=== PATIENT | male | born 1960 | race African-American/Black ===

== ENCOUNTER 2016-05-01 14:28 | Observation (INO) ==
--- NOTE | 2016-05-01 15:13 | EKG Report ---
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
--- NOTE | 2016-05-01 15:14 | Emergency Department Note ---
Ernesto Sr Gwan, am scribing for, and in the presence of, Bernardino Shirley MD 15:11 . Fern Sr James D, MD, personally performed the services described in this documentation, ascribed by Phi Orozco in my presence, and it is both accurate and complete . Arrival - Arrival ED Nursing Triage Note: C/o SOB with exertion-onset 5 days ago. Denies CP or N/ V. Mode of Arrival: Ambulatory Limitations: No Limitations Source: Patient, Old Records Reviewed, RN Notes Reviewed - History of Present Illness Onset (ago): day(s) Consistency: constant Severity: moderate <Bernardino Shirley - Last Filed: 05/01/16 15:47> <Brittny Santiago - Last Filed: 05/01/16 22:33> - Arrival Chief Complaint: Shortness of Breath Stated Complaint: FEELING BAD/SOB - History of Present Illness HPI Narrative: Pt is a 55 y/o male, with a hx of HTN/NIDDM/asthma, who presents to the with a c/o SOB with an onset 5 days ago. Patient stated that her SOB is worsened with exertion. He denies chest pain, cough, wheezing, fever, no dark BM or N/V. Patient then stated that he has been checked for blood clots with negative results. He confirmed that he has been complaint with medication and that he last checked his BS three days ago. Patient is followed by Dr. Carrillo. No other problems/complaints reported in ED. (Phi Orozco) Pt is a 55 y/o male, with a hx of HTN/NIDDM/asthma, who presents to the with a c/o SOB with an onset 5 days ago. Patient stated that her SOB is worsened with exertion. He denies chest pain, cough, wheezing, fever, no dark BM or N/V. Patient then stated that he has been checked for blood clots with negative results. He confirmed that he has been complaint with medication and that he last checked his BS three days ago. Patient is followed by Dr. Carrillo. No other problems/complaints reported in ED. (Bernardino Shirley) Allergies/Adverse Reactions: Allergies Allergy/AdvReac Type Severity Reaction Status Date / Time No Known Allergies Allergy Verified 07/10/14 08:51 Home Medications: Home Medications Medication Instructions Recorded Confirmed Type Amlodipine Besylate 10 mg PO DAILY 07/10/14 05/01/16 History Furosemide Tab [Lasix Tab] 20 mg PO BID DIURETIC 07/10/14 05/01/16 History Lisinopril [Zestril] 40 mg PO DAILY 07/10/14 05/01/16 History glyBURIDE/METFORMIN 5-500 2 tablet PO BID W/MEALS 07/10/14 05/01/16 History [Glucovance 5-500] Dapagliflozin Propanediol [Farxiga] 10 mg PO QAM 05/01/16 05/01/16 History Review of System - Review of System 12 point system: reviewed and no additional remarkable complaints except as stated - Review of System Respiratory: Present: as per HPI, other (shortness of breathe) <Bernardino Shirley - Last Filed: 05/01/16 15:47> Medical,Surgical,& Family Hx - Medical History Cardio: History of: Hypertension Endocrine: History of: Diabetes Mellitus (NIDDM), Dyslipidemia Respiratory: History of: Asthma (as a child) Renal: No history of: Renal Problems Genitourinary: History of: Kidney Stones Gastrointestinal: No history of: Gastrointestinal Bleed, GI Problems - Surgical History Orthopedic Surgeries: Surgical HX of;: Orthopedic Surgery (ACL repair and previous knee scopes) - Social History Smoking Status: Never smoker Frequency of Alcohol Use: None Type of Drug Use: None <Bernardino Shirley - Last Filed: 05/01/16 15:47> Exam <Bernardino Shirley - Last Filed: 05/01/16 15:47> <Brittny Santiago - Last Filed: 05/01/16 22:33> Vital Signs: Vital Signs Temperature 98.1 F 05/01/16 16:30 Pulse Rate 92 H 05/01/16 21:30 Respiratory Rate 18 05/01/16 21:30 Blood Pressure 135/78 05/01/16 21:30 O2 Sat by Pulse Oximetry 99 05/01/16 21:30 GENERAL: This is a well-nourished well-developed morbidly obese black male in no apparent distress. VITAL SIGNS: Reviewed HEENT: Head is atraumatic and normocephalic. Pupils are equal round react to light. Extraocular movements are intact. Oropharynx is benign with moist mucous membranes. NECK: Neck is soft and supple without tenderness. There are no masses. There is no lymphadenopathy. LUNGS: Lungs are clear to auscultation. Chest rises symmetrically. There is no chest wall tenderness. CV: Heart is regular rate and rhythm without murmurs rubs or gallops. ABDOMEN: Abdomen is soft, nontender to palpation. There are no abdominal abnormal masses palpated. There is no organomegaly. Bowel sounds are present and active. SKIN: Skin is warm and dry. No rash. EXTREMITIES: Patient has full range of motion without tenderness. There is 2+ right lower extremity pitting pedal edema. NEUROLOGIC: Awake alert and oriented 4. Cranial nerves II through XII are grossly intact. Motor is 5 over 5 in all extremities bilaterally. (Bernardino Shirley) Course <Bernardino Shirley - Last Filed: 05/01/16 15:47> <Brittny Santiago - Last Filed: 05/01/16 22:33> Course Narrative: h/h much lower than prior. occult positive. likely from taking aleve all the time for knee pain. will admit to hospitalist. (Brittny Santiago) Results - Labs Lab Results: I have reviewed the patients labs - EKG EKG results: interpreted by ERMD - Diagnostic Findings Procedure: Chest x-ray: image reviewed by me (Increased pulmonary markings bilaterally.) <Bernardino Shirley - Last Filed: 05/01/16 15:47> - Labs CBC & BMP: 05/01/16 15:42 05/01/16 15:45 <Brittny Santiago - Last Filed: 05/01/16 22:33> - Impressions EKG: Normal sinus rhythm with a rate of 89, T-wave inversion consistent with anterolateral ischemia, normal axis. (Bernardino Shirley) Disposition Case discussed with: patient <Bernardino Shirley - Last Filed: 05/01/16 15:47> Case discussed with: patient, patient's family <Brittny Santiago - Last Filed: 05/01/16 22:33> Clinical Impression: Dyspnea, Essential hypertension, Diabetes mellitus, Edema of right lower extremity, Symptomatic anemia, GI bleed due to NSAIDs Disposition: Still a Patient Condition: Stable
--- NOTE | 2016-05-01 15:39 | XRay Report ---
XR chest 2V Indication: Shortness of breath Comparison: None available Findings: The heart and mediastinum are normal in size and configuration. The pulmonary vascularity is normal in caliber. No lung infiltrates, effusions, pneumothorax or other abnormality is demonstrated. Impression: Normal chest x-ray PROCEDURE INTERPRETED AT [facility] DEPARTMENT OF RADIOLOGY Final Report Signed by: Dr. Raj Staley
[2016-05-01] MEDS ORDERED: FUROSEMIDE 40 MG/4 ML VIAL IV STA (15:47)
[2016-05-01] MEDS ORDERED: FUROSEMIDE 100 MG/10 ML VIAL ONE (16:14)
[2016-05-01 16:27] LABS: Basophils % 0.5 % (0.0-0.8); Eosinophils # 0.2 10*3/uL (0.0-0.87); Eosinophils % 2.6 % (0.00-10.9); Hematocrit 28.4 VOL% (42.0-52.0); Hemoglobin 8.6 GM/DL (14.0-18.0); Immature Granulocytes % 0.5 %; Immature Granulocytes Absolute 0.04 #; Lymphocytes # 1.7 10*3/uL (1.4-4.0); Lymphocytes % 20.1 % (21.2-54.2); Mean Corpuscular HGB Conc 30.3 GM/DL (32-36); Mean Corpuscular Hemoglobin 28 PG (27-34); Monocytes # 0.5 10*3/uL (0.11-0.8); Monocytes % 6.1 % (1.7-12.7); Neutrophils # 5.9 10*3/uL (1.4-7.4); Neutrophils % 70.2 % (38.7-73.9); Platelet Count 268 T/CUMM (130-400); Red Blood Count 3.12 MC/CUMM (3.8-5.5); Red Cell Distribution Width 17.4 % (9.3-17.3); White Blood Count 8.4 T/CUMM (4-12)
--- NOTE | 2016-05-01 16:27 | Ultrasound Report ---
Venous Doppler ultrasound right lower extremity Indication: Swelling Comparison: None available Findings: No evidence of echogenic, noncompressible thrombus seen in the visualized veins of the extremities. Color Doppler venous waveform pattern is within normal limits. Impression: No evidence of deep venous thrombosis. Ultrasound images stored and captured. PROCEDURE INTERPRETED AT [facility] DEPARTMENT OF RADIOLOGY Final Report Signed by: Dr. Raj Staley
[2016-05-01 16:34] LABS: PT Patient Result 10.5 SECS; Partial Thromboplastin Time 27.6 SECS (0-40)
[2016-05-01 16:35] LABS: Alanine Aminotransferase 24 U/L (16-61); Albumin 3.6 G/DL (3.4-5.0); Alkaline Phosphatase 80 U/L (45-117); Aspartate Amino Transferase 20 U/L (0-37); Bilirubin,Total < 0.39 MG/DL (0.2-1.0); Blood Urea Nitrogen 25 MG/DL (7-18); Calcium 9.1 MG/DL (8.5-10.1); Glucose 177 MG/DL (74-106); Potassium 4.7 MMOL/L (3.5-5.1); Sodium 143 MMOL/L (136-145); Total Protein 7.2 G/DL (6.4-8.3); Troponin I Only < 0.015 NG/ML (0.00-0.045)
[2016-05-01 16:37] LABS: Apearance,Urine CLEAR (Clear); Bilirubin,Urine Negative (Negative); Blood, Urine Negative (Negative); Glucose,Urine (UA) >=500 mg/dL (Negative); Ketones,Urine Negative (Negative); Mucus,Urine Occasional /LPF (Occasional); Nitrite,Urine Negative (Negative); Protein,Urine 30 MG/DL; Squamous Epithelial Cell,Urine Occasional /HPF (0-10); Urine Color Straw (Yellow); Urine Specific Gravity 1.014 (1.001-1.035); Urine Urobilinogen < 2.0 EU/DL (0.2-1.0); WBC,Urine 1 /HPF (0-6)
[2016-05-01 16:39] LABS: Barbiturates Screen,Urine Negative (Negative); Benzodiazepines Screen,Urine Negative (Negative); Cannabinoid Screen,Urine Negative (Negative); Opiate Screen,Urine Negative (Negative); Phencyclidine Screen,Urine Negative (Negative)
[2016-05-01] MEDS ORDERED: diphenhydrAMINE CAP 25 MG CAPSULE PO PRN (19:19)
[2016-05-01] MEDS ORDERED: ACETAMINOPHEN 325 MG TABLET PO PRN (19:19)
[2016-05-01] MEDS ORDERED: SODIUM CHLORIDE 0.9% 250 ML IV PRN (19:38)
[2016-05-01 20:01] LABS: Risk Ratio 4.96; Thyroid Stimulating Hormone 0.994 uIU/ml (0.358-3.74); VLDL CHOLESTEROL 63.4 MG/DL
[2016-05-01 20:01] LABS: % Iron Saturation 12.1 % (18-50)
--- NOTE | 2016-05-01 20:03 | Hospitalist History & Physical ---
Assessment and Plan (1) IGOR (acute kidney injury) Status: Acute Assessment and plan: Patient is unsure of if he has been told he has kidney disease in the past. Will order urine electrolytes. Gentle fluids. Will hold lisinopril for now. Current Visit: Yes (2) Normocytic anemia Status: Acute Assessment and plan: H&H of 8 and 26. Hemoglobin was 12 last in our system. No overt signs of bleeding. Will order iron studies. Will transfuse 2 units packed red blood cells tonight. Order FOBT. If patient feels better tomorrow after receiving the blood, could possibly be worked up further outpatient Current Visit: Yes (3) Dyspnea Status: Acute Assessment and plan: New problem over the last couple of weeks. Possibly due to symptomatic anemia. 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 Patient has no cardiac history. Does not use tobacco. He is overweight. Given his history of problems with edema will order an echo. Could also consider obstructive sleep apnea. Given oxygen saturation around 100 on room air pushes PE further down on my differential. Current Visit: Yes (4) Essential hypertension Status: Acute Assessment and plan: Continue amlodipine. Will hold lisinopril for now given IGOR. Current Visit: Yes (5) Diabetes mellitus Status: Acute Assessment and plan: Will hold his home p.o. medications including metformin and glyburide. Will order sliding scale insulin for now Current Visit: Yes Qualifiers: Diabetes mellitus type: type 2 (6) Edema of right lower extremity Status: Acute Assessment and plan: Lower extremity Doppler was negative. Ordering echo. Current Visit: Yes History of Present Illness Chief complaint: tired when working History of present illness: Mr. Felipe is a 55 year old male with diabetes and hypertension presented to the ED complaining of tiredness with exertion. Patient reports that for the last couple of weeks when he walks long distances he feels short of breath, this is new for him. He reports that he is able to walk from the emergency room to the parking garage before the shortness of breath occurs. He denies chest pain or diaphoresis with these episodes. He also denies orthopnea. He does have a history of right lower extremity edema, that was done in the ED were negative for clot. In the ED it was noted that his H&H was lower than previous. He denies hematemesis, hematochezia or melena. Never been told that he has anemia. In the ED was also noted that his creatinine was elevated, he reports to someone may in the past have told him that he has kidney problems but he is unsure. He notes no changes in his urine output. Home Medications Medication Instructions Recorded Confirmed Type Amlodipine Besylate 10 mg PO DAILY 07/10/14 05/01/16 History Furosemide Tab [Lasix Tab] 20 mg PO BID DIURETIC 07/10/14 05/01/16 History Lisinopril [Zestril] 40 mg PO DAILY 07/10/14 05/01/16 History glyBURIDE/METFORMIN 5-500 2 tablet PO BID W/MEALS 07/10/14 05/01/16 History [Glucovance 5-500] Dapagliflozin Propanediol [Farxiga] 10 mg PO QAM 05/01/16 05/01/16 History Allergies Allergy/AdvReac Type Severity Reaction Status Date / Time No Known Allergies Allergy Verified 07/10/14 08:51 Medical,Surgical,& Family Hx - Medical History Cardio: History of: Hypertension Endocrine: History of: Diabetes Mellitus (NIDDM), Dyslipidemia Respiratory: History of: Asthma (as a child) Renal: No history of: Renal Problems Genitourinary: History of: Kidney Stones Gastrointestinal: No history of: Gastrointestinal Bleed, GI Problems - Surgical History Orthopedic Surgeries: Surgical HX of;: Orthopedic Surgery (ACL repair and previous knee scopes) - Family History Family History: Reports;: Family Diabetes, Family Hypertension Denies;: Family Heart Disease - Social History Smoking Status: Never smoker Frequency of Alcohol Use: None Type of Drug Use: None Marital Status: Single Lives With:: Significant Other Functional capacity: independent ambulation - Constitutional Constitutional: Present: fatigue. Absent: anorexia, excessive sweating, weight gain, weight loss - EENT Eyes: Absent: blurry vision, diplopia Ears: Absent: decreased hearing, ear discharge Nose, mouth and throat: Absent: headache(s), sore throat - Cardiovascular Cardiovascular: Present: edema. Absent: chest pain at rest, chest pain with activity, lightheadedness, palpitations - Respiratory Respiratory: Present: dyspnea on exertion. Absent: wheezing, pain on inspiration - Gastrointestinal Gastrointestinal: Absent: abdominal pain, hematemesis, hematochezia - Genitourinary Genitourinary: Absent: difficulty urinating, hematuria - Musculoskeletal Musculoskeletal: Absent: arthralgias, muscle weakness - Neurological Neurological: Absent: abnormal gait, dizziness - Psychiatric Psychiatric: Absent: anxiety, confusion - Endocrine Endocrine: Absent: polydipsia, polyphagia - Hematologic/Lymphatic Hematologic/Lymphatic: Absent: easy bleeding, easy bruising Exam - Constitutional Vitals: Period Temp Pulse Resp BP Sys/Jensen Pulse Ox Last 24 Hr 98.1 F-98.1 F 84-91 18-20 116-173/68-94 95-100 General appearance: over weight - Head Head exam: Present: normocephalic, atraumatic - Eye Eye exam: Present: EOMI Pupils: Present: VON - ENT ENT exam: Present: normal exam - Neck Neck exam: Present: normal inspection. Absent: lymphadenopathy, tenderness - Respiratory Respiratory exam: Present: clear to auscultation bilaterally - Cardiovascular Cardiovascular exam: Present: regular rate and rhythm - GI/Abdominal GI/Abdominal exam: Present: normal bowel sounds, soft - Extremities Exam Extremities exam: Present: normal inspection, edema - Back Exam Back exam: Present: normal inspection - Neurological Exam Neurological exam: Present: alert, oriented X3 - Psychiatric Psychiatric exam: Present: normal affect, normal mood - Skin Skin exam: Present: warm, intact Results - Labs CBC & BMP: 05/01/16 15:42 05/01/16 15:45
[2016-05-01] MEDS ORDERED: GLUCAGON 1 MG VIAL IM PRN (20:16)
[2016-05-01] MEDS ORDERED: DEXTROSE 50% 25 GM/50 ML VIAL IV PRN (20:16)
[2016-05-01] MEDS ORDERED: ENOXAPARIN 40 MG/0.4 ML SYRINGE SUBCUT SCH (21:00)
[2016-05-02 06:57] LABS: Basophils % 0.6 % (0.0-0.8); Eosinophils # 0.2 10*3/uL (0.0-0.87); Eosinophils % 2.5 % (0.00-10.9); Hemoglobin 10.3 GM/DL (14.0-18.0); Immature Granulocytes % 0.3 %; Immature Granulocytes Absolute 0.02 #; Lymphocytes % 28.3 % (21.2-54.2); Mean Corpuscular HGB Conc 31.2 GM/DL (32-36); Mean Corpuscular Hemoglobin 28 PG (27-34); Mean Corpuscular Volume 89.2 FL (87-102); Mean Platelet Volume 11.4 FL (9.6-12.0); Monocytes # 0.5 10*3/uL (0.11-0.8); Monocytes % 6.8 % (1.7-12.7); Neutrophils # 4.5 10*3/uL (1.4-7.4); Neutrophils % 61.5 % (38.7-73.9); Platelet Count 258 T/CUMM (130-400); Red Cell Distribution Width 16.8 % (9.3-17.3); White Blood Count 7.2 T/CUMM (4-12)
[2016-05-02 07:22] LABS: Calcium 9.4 MG/DL (8.5-10.1); Osmolality,Calculated 294.1 MOS/KG (273-304); Potassium 4.7 MMOL/L (3.5-5.1)
[2016-05-02] MEDS ORDERED: INSULIN LISPRO 100 UNIT/ML SUBCUT SCH (08:00)
[2016-05-02] MEDS ORDERED: PANTOPRAZOLE 40 MG TABLET PO SCH (09:00)
--- NOTE | 2016-05-02 15:44 | ECHO Report ---
David Felipe 05/02/2016 Exam Date: 11:15 Referring Physician: Hugo CASTILLOTechnologist: Age: 55 Ht (in): Wt (lb): MExam [facility] Gender: Echo [id number]: SOB, dyspnea on excertion, HTNIndications: BP: / HR: SinusRhythm: Technically difficult studyTechnical Quality: IMPRESSIONS Endocardium not well visualized. Grossly normal left ventricular size and systolic function, left ventricular ejection fraction is estimated at 55-60 %. Normal right ventricular size and systolic function. Normal right atrial size. Normal left atrial size. Mildly thickened mitral valve with mild mitral regurgitation. Aortic valve sclerosis without stenosis or regurgitation. Morphologically normal tricuspid valve. [id number] tricuspid valve regurgitation. Tricuspid regurgitation velocities suggest a PAP of 20.6 mmHg + RAP. Pulmonic valve not well visualized. No pericardial effusion. Normal size aortic root and proximal ascending aorta. MEASUREMENTS (Male / Female) Normal Values 2D ECHO LV Diastolic Diameter PLAX 3.8 cm 4.2 - 5.9 / 3.9 - 5.3 cm LV Systolic Diameter PLAX 2.3 cm LV Fractional Shortening PLAX 40.9 % IVS Diastolic Thickness 2.1 cm 0.6 - 1.0 / 0.6 - 0.9 cm LVPW Diastolic Thickness 1.5 cm 0.6 - 1.0 / 0.6 - 0.9 cm RV Internal Dim ED PLAX 2.5 cm Aortic Root Diameter 2.6 cm LA Systolic Diameter LX 4.0 cm 3.0 - 4.0 / 2.7 - 3.8 cm DOPPLER TR Peak Velocity 227.0 cm/s TR Peak Gradient 20.6 mmHg FINDINGS Left Ventricle Endocardium not well visualized. Grossly normal left ventricular size and systolic function, left ventricular ejection fraction is estimated at 55-60 %. Right Ventricle Normal right ventricular size and systolic function. Right Atrium Normal right atrial size. Left Atrium Normal left atrial size. Mitral Valve Mildly thickened mitral valve with mild mitral regurgitation. Aortic Valve Aortic valve sclerosis without stenosis or regurgitation. Tricuspid Valve Morphologically normal tricuspid valve. [id number] tricuspid valve regurgitation. Tricuspid regurgitation velocities suggest a PAP of 20.6 mmHg + RAP. Pulmonic Valve Pulmonic valve not well visualized. Pericardium No pericardial effusion. Aorta Normal size aortic root and proximal ascending aorta. Jesse Santo MD (Electronically Signed) 02 May 2016 Final Date: 15:43
[2016-05-02 16:14] VITALS: BP 137/67
--- NOTE | 2016-05-02 16:17 | Discharge Summary ---
Discharge Plan - Discharge Data Disposition: Disch To Home/Self Care Condition at Discharge: Stable Activity: resume usual activities as tolerated Hygiene: no restrictions Contact your physician if you experience:: fever over 101, Nausea/Vomiting, Shortness of breath, Bleeding - Discharge Medications Continue glyBURIDE/METFORMIN 5-500 [Glucovance 5-500] 2 tablet PO BID W/MEALS Lisinopril [Zestril] 40 mg PO DAILY Furosemide Tab [Lasix Tab] 20 mg PO BID DIURETIC Amlodipine Besylate 10 mg PO DAILY Dapagliflozin Propanediol [Farxiga] 10 mg PO QAM - Follow Up or Referral - Forms/Instructions Exam - Constitutional Vitals: Period Temp Pulse Resp BP Sys/Jensen Pulse Ox Last 24 Hr 96.7 F-98.3 F 79-92 18-20 113-154/53-94 92-99 General appearance: over weight - Head Head exam: Present: normal inspection - Eye Eye exam: Present: EOMI Pupils: Present: VON - ENT ENT exam: Present: normal exam - Respiratory Respiratory exam: Present: clear to auscultation bilaterally - Cardiovascular Cardiovascular exam: Present: regular rate and rhythm - GI/Abdominal GI/Abdominal exam: Present: normal bowel sounds, soft, other (Rotund abdomen) - Extremities Exam Extremities exam: Present: full ROM, other (Edema of the right lower extremity ultrasound negative for DVT patient does have residual edema on the left. More than likely the gentleman has chronic venous stasis.) - Back Exam Back exam: Present: normal inspection - Neurological Exam Neurological exam: Present: alert, oriented X3, CN II-XII intact - Psychiatric Psychiatric exam: Present: normal affect, normal mood - Skin Skin exam: Present: other (Edema of the right lower extremity with some warmth to touch. He may benefit from oral antibiotics at least for the next 10 days. We will put him on minocycline 100 mg p.o twice a day. Avoids over exposure to sunlight for fear of dermatopathy that can arise from ultraviolet light exposure while taking tetracyclines.) Discharge Results Procedures and tests throughout hospitalization: Pending Orders 05/01/16 20:15 Occult Blood, Stool Routine Labs on day of discharge: Labs from last 24 hours 05/02/16 05/02/16 05/02/16 07:04 06:35 06:35 WBC 7.2 RBC 3.70 L Hgb 10.3 L Hct 33.0 L MCV 89.2 MCH 28 MCHC 31.2 L RDW 16.8 Plt Count 258 MPV 11.4 Neut % (Auto) 61.5 Lymph % (Auto) 28.3 [place] % (Auto) 6.8 Eos % (Auto) 2.5 Baso % (Auto) 0.6 Neut # (Auto) 4.5 Lymph # (Auto) 2.0 [place] # (Auto) 0.5 Eos # (Auto) 0.2 Baso # (Auto) 0.0 Immature Gran % 0.3 Nucleated RBC % 0.0 Immature Gran # 0.02 Nucleated RBCs # 0.00 Sodium 142 Potassium 4.7 Chloride 103 Carbon Dioxide 30 Anion Gap 13.7 BUN 28 H Creatinine 2.20 H GFR Calculation 59 BUN/Creatinine Ratio 12.00 Glucose 212 H POC Glucose 224 H Calculated Osmolality 294.1 Calcium 9.4 Iron TIBC % Saturation Ferritin Blood Type Antibody Screen Crossmatch 05/01/16 05/01/16 05/01/16 21:02 20:43 19:38 WBC RBC Hgb Hct MCV MCH MCHC RDW Plt Count MPV Neut % (Auto) Lymph % (Auto) [place] % (Auto) Eos % (Auto) Baso % (Auto) Neut # (Auto) Lymph # (Auto) [place] # (Auto) Eos # (Auto) Baso # (Auto) Immature Gran % Nucleated RBC % Immature Gran # Nucleated RBCs # Sodium Potassium Chloride Carbon Dioxide Anion Gap BUN Creatinine GFR Calculation BUN/Creatinine Ratio Glucose POC Glucose Calculated Osmolality Calcium Iron TIBC % Saturation Ferritin 23.7 L Blood Type B POSITIVE B POSITIVE Antibody Screen Negative Crossmatch See Detail 05/01/16 19:38 WBC RBC Hgb Hct MCV MCH MCHC RDW Plt Count MPV Neut % (Auto) Lymph % (Auto) [place] % (Auto) Eos % (Auto) Baso % (Auto) Neut # (Auto) Lymph # (Auto) [place] # (Auto) Eos # (Auto) Baso # (Auto) Immature Gran % Nucleated RBC % Immature Gran # Nucleated RBCs # Sodium Potassium Chloride Carbon Dioxide Anion Gap BUN Creatinine GFR Calculation BUN/Creatinine Ratio Glucose POC Glucose Calculated Osmolality Calcium Iron 36 L TIBC 298 % Saturation 12.1 L Ferritin Blood Type Antibody Screen Crossmatch DS: Provider Date of admission: 05/01/16 19:19 Primary care physician: . No PCP Attending physician on admission: Rosi Melchor MD Discharging clinician: Gilberto Wheeler MD Expected date of discharge: 05/02/16
== END 2016-05-02 17:55 | disposition home or self-care (01) ==
LOC: N.EDINP 14:28 → N.ED 14:28 → SUATTDRO 19:19 → N.4E 20:54
PROVIDERS: ADMIT Internal Medicine; ATTEND Internal Medicine Infectious Disease

== ENCOUNTER 2018-03-07 05:29 | Inpatient (IN) ==
[2018-02-24 15:53] LABS: Basophils # 0.1 10*3/uL (0.0-0.2); Basophils % 0.7 % (0.0-0.8); Eosinophils # 0.3 10*3/uL (0.0-0.87); Eosinophils % 3.1 % (0.00-10.9); Hematocrit 33.5 VOL% (42.0-52.0); Hemoglobin 10.3 GM/DL (14.0-18.0); Immature Granulocytes % 0.1 %; Immature Granulocytes Absolute 0.01 #; Lymphocytes # 1.9 10*3/uL (1.4-4.0); Lymphocytes % 23.3 % (21.2-54.2); Mean Corpuscular HGB Conc 30.7 GM/DL (32-36); Mean Corpuscular Hemoglobin 27 PG (27-34); Mean Corpuscular Volume 86.8 FL (87-102); Monocytes # 0.5 10*3/uL (0.11-0.8); Neutrophils # 5.5 10*3/uL (1.4-7.4); Neutrophils % 66.8 % (38.7-73.9); Platelet Count 243 T/CUMM (130-400); Red Blood Count 3.86 MC/CUMM (3.8-5.5); Red Cell Distribution Width 15.9 % (9.3-17.3); White Blood Count 8.3 T/CUMM (4-12)
[2018-02-24 16:04] LABS: PT Patient Result 10.4 SECS
[2018-02-24 16:10] LABS: Apearance,Urine CLEAR (Clear); Bilirubin,Urine Negative (Negative); Blood, Urine Negative (Negative); Glucose,Urine (UA) Negative (Negative); Ketones,Urine Negative (Negative); Mucus,Urine Occasional /LPF (Occasional); Nitrite,Urine Negative (Negative); Protein,Urine 100 MG/DL; RBC,Urine 2 /HPF (0-4); Squamous Epithelial Cell,Urine Occasional /HPF (0-10); Urine Color Yellow (Yellow); Urine Specific Gravity 1.015 (1.001-1.035); Urine Urobilinogen < 2.0 EU/DL (0.2-1.0); WBC,Urine 2 /HPF (0-6)
[2018-02-24 16:13] LABS: Albumin 3.8 G/DL (3.4-5.0); Bilirubin,Total 0.6 MG/DL (0.2-1.0); Calcium 9.4 MG/DL (8.5-10.1); Osmolality,Calculated 288.3 MOS/KG (273-304); Potassium 4.7 MMOL/L (3.5-5.1); Total Protein 7.8 G/DL (6.4-8.3)
[2018-03-07] MEDS ORDERED: ceFAZolin 2,000 MG in PREMIX 1 EACH IV ONE (06:00)
[2018-03-07] MEDS ORDERED: VANCOMYCIN 1,000 MG VIAL ONE (06:00)
[2018-03-07] MEDS ORDERED: VANCOMYCIN INJ 1,000 MG in SODIUM CHLORIDE 0.9% 250 ML IV ONE ×2 (06:00→18:00)
[2018-03-07] MEDS ORDERED: TRANEXAMIC ACID 1,000 MG/10 ML VIAL ONE (06:19)
[2018-03-07] MEDS ORDERED: BACITRACIN OINT 0.9 GM PACK TOP ONE (06:38)
[2018-03-07] MEDS ORDERED: ROPIVACAINE 0.5% 30 ML VIAL ONE (06:40)
[2018-03-07] MEDS ORDERED: BUPIVACAINE SPINAL 0.75% 2 ML AMP SPINAL ONE (06:40)
[2018-03-07] MEDS: LACTATED RINGERS 1,000 ML IV SCH ×5 (07:16→22:54)
[2018-03-07] MEDS ORDERED: DEXTROSE 50% 25 GM/50 ML VIAL IV PRN (09:04)
[2018-03-07] MEDS ORDERED: GLUCAGON 1 MG VIAL IM PRN (09:04)
[2018-03-07] MEDS ORDERED: MAGNESIUM HYDROXIDE SUSP 30 ML UDCUP PO PRN (09:05)
[2018-03-07] MEDS ORDERED: diphenhydrAMINE CAP 25 MG CAPSULE PO PRN (09:06)
[2018-03-07] MEDS ORDERED: ONDANSETRON 4 MG/2 ML VIAL IV PRN ×2 (09:06→09:34)
[2018-03-07] MEDS ORDERED: MORPHINE 4 MG/1 ML VIAL IV PRN ×2 (09:06)
[2018-03-07] MEDS ORDERED: ZALEPLON 5 MG CAPSULE PO PRN (09:06)
[2018-03-07] MEDS ORDERED: oxyCODONE IR 5 MG TABLET PO PRN ×2 (09:06)
[2018-03-07] MEDS ORDERED: HYDROmorphone 2 MG/1 ML VIAL ONE (09:18)
[2018-03-07] MEDS: HYDROmorphone 2 MG/1 ML VIAL IV PRN ×2 (09:20→09:30)
[2018-03-07] MEDS ORDERED: MIDAZOLAM 2 MG/2 ML VIAL ONE (09:26)
[2018-03-07] MEDS ORDERED: DEXAMETHASONE 10 MG/1 ML VIAL ONE (09:26)
[2018-03-07] MEDS ORDERED: SEVOFLURANE 1 UNIT/15 MINUTE INH ONE (09:26)
[2018-03-07] MEDS ORDERED: ONDANSETRON 4 MG/2 ML VIAL ONE (09:26)
[2018-03-07] MEDS ORDERED: PROPOFOL 200 MG/20 ML VIAL IV ONE (09:26)
[2018-03-07] MEDS ORDERED: fentaNYL 100 MCG/2 ML VIAL ONE (09:26)
[2018-03-07] MEDS ORDERED: ROCURONIUM 100 MG/10 ML VIAL IV ONE (09:27)
[2018-03-07] MEDS ORDERED: NEOSTIGMINE 10 MG/10 ML VIAL ONE (09:27)
[2018-03-07] MEDS ORDERED: GLYCOPYRROLATE 0.4 MG/2 ML VIAL ONE (09:27)
[2018-03-07] MEDS ORDERED: PHENYLEPHRINE 1 MG/10 ML SYRINGE IV ONE (09:27)
[2018-03-07] MEDS ORDERED: LACTATED RINGERS 1,000 ML IV ONE (09:27)
[2018-03-07] MEDS ORDERED: MEPERIDINE 25 MG/1 ML VIAL ONE (09:40)
[2018-03-07] MEDS: MEPERIDINE 25 MG/1 ML VIAL IV PRN ×2 (09:40→09:50)
[2018-03-07] MEDS: KETOROLAC 30 MG/1 ML VIAL IV SCH ×3 (09:45→20:57)
[2018-03-07] MEDS: ceFAZolin 2,000 MG in PREMIX 1 EACH IV SCH ×2 (13:09→21:01)
[2018-03-07] MEDS: INSULIN LISPRO 100 UNIT/ML SUBCUT SCH ×3 (13:16→20:56)
[2018-03-07] MEDS: ACETAMINOPHEN 500 MG TABLET PO SCH ×2 (13:16→20:56)
[2018-03-07] MEDS: DOCUSATE SODIUM 100 MG CAPSULE PO SCH (20:56)
[2018-03-08] MEDS: ACETAMINOPHEN 500 MG TABLET PO SCH ×2 (03:07→09:16)
[2018-03-08] MEDS: KETOROLAC 30 MG/1 ML VIAL IV SCH (03:08)
[2018-03-08] MEDS: FONDAPARINUX 2.5 MG/0.5 ML SYRINGE SUBCUT SCH (03:08)
[2018-03-08] MEDS: ceFAZolin 2,000 MG in PREMIX 1 EACH IV SCH ×3 (05:29→21:44)
[2018-03-08] MEDS: LACTATED RINGERS 1,000 ML IV SCH (06:20)
[2018-03-08 06:27] LABS: Basophils % 0.2 % (0.0-0.8); Hematocrit 31.2 VOL% (42.0-52.0); Hemoglobin 9.4 GM/DL (14.0-18.0); Immature Granulocytes % 0.3 %; Immature Granulocytes Absolute 0.03 #; Lymphocytes # 1.2 10*3/uL (1.4-4.0); Lymphocytes % 12.7 % (21.2-54.2); Mean Corpuscular HGB Conc 30.1 GM/DL (32-36); Mean Corpuscular Hemoglobin 26 PG (27-34); Mean Corpuscular Volume 87.2 FL (87-102); Mean Platelet Volume 11.7 FL (9.6-12.0); Monocytes # 0.8 10*3/uL (0.11-0.8); Monocytes % 8.9 % (1.7-12.7); Neutrophils # 7.1 10*3/uL (1.4-7.4); Neutrophils % 77.9 % (38.7-73.9); Platelet Count 198 T/CUMM (130-400); Red Blood Count 3.58 MC/CUMM (3.8-5.5); White Blood Count 9.1 T/CUMM (4-12)
[2018-03-08 06:38] LABS: Calcium 8.2 MG/DL (8.5-10.1); Osmolality,Calculated 281.5 MOS/KG (273-304); Potassium 4.5 MMOL/L (3.5-5.1)
[2018-03-08] MEDS: INSULIN LISPRO 100 UNIT/ML SUBCUT SCH ×4 (07:35→21:44)
[2018-03-08] MEDS ORDERED: NON-FORMULARY MEDICATION (Dapagliflozin Propanediol [Farxiga] 10 MG) PO SCH (09:00)
[2018-03-08] MEDS ORDERED: ACETAMINOPHEN 325 MG TABLET PO PRN (09:07)
[2018-03-08] MEDS: MULTIVITAMIN (CENTRUM) TABLET PO SCH (09:16)
[2018-03-08] MEDS: LISINOPRIL 20 MG TABLET PO SCH (09:16)
[2018-03-08] MEDS: GLIMEPIRIDE 4 MG TABLET PO SCH (09:16)
[2018-03-08] MEDS: DOCUSATE SODIUM 100 MG CAPSULE PO SCH ×2 (09:17→21:44)
[2018-03-08] MEDS ORDERED: CELECOXIB 200 MG CAPSULE PO SCH (15:07)
[2018-03-09] MEDS: FONDAPARINUX 2.5 MG/0.5 ML SYRINGE SUBCUT SCH (04:22)
[2018-03-09 06:09] LABS: Basophils # 0.1 10*3/uL (0.0-0.2); Basophils % 0.6 % (0.0-0.8); Eosinophils # 0.2 10*3/uL (0.0-0.87); Eosinophils % 2.3 % (0.00-10.9); Hematocrit 33.9 VOL% (42.0-52.0); Hemoglobin 10.1 GM/DL (14.0-18.0); Immature Granulocytes % 0.6 %; Immature Granulocytes Absolute 0.05 #; Lymphocytes # 1.3 10*3/uL (1.4-4.0); Lymphocytes % 15.1 % (21.2-54.2); Mean Corpuscular HGB Conc 29.8 GM/DL (32-36); Mean Corpuscular Hemoglobin 26 PG (27-34); Mean Corpuscular Volume 88.1 FL (87-102); Mean Platelet Volume 11.8 FL (9.6-12.0); Monocytes # 0.7 10*3/uL (0.11-0.8); Monocytes % 8.4 % (1.7-12.7); Neutrophils # 6.1 10*3/uL (1.4-7.4); Platelet Count 225 T/CUMM (130-400); Red Blood Count 3.85 MC/CUMM (3.8-5.5); Red Cell Distribution Width 16.3 % (9.3-17.3); White Blood Count 8.4 T/CUMM (4-12)
[2018-03-09] MEDS: ceFAZolin 2,000 MG in PREMIX 1 EACH IV SCH ×3 (06:10→14:03)
[2018-03-09] MEDS: GLIMEPIRIDE 4 MG TABLET PO SCH (08:00)
[2018-03-09] MEDS: LISINOPRIL 20 MG TABLET PO SCH (08:00)
[2018-03-09] MEDS: INSULIN LISPRO 100 UNIT/ML SUBCUT SCH ×2 (08:00→11:41)
[2018-03-09] MEDS: MULTIVITAMIN (CENTRUM) TABLET PO SCH (08:00)
[2018-03-09] MEDS: DOCUSATE SODIUM 100 MG CAPSULE PO SCH (08:00)
[2018-03-09 12:06] VITALS: BP 163/78
== END 2018-03-09 15:35 | disposition home health service (06) | DRG 470 ==
LOC: N.OR 05:29 → N.SDSINP 05:30 → N.3E 12:55
PROVIDERS: ADMIT Orthopaedic Surgery; ATTEND Orthopaedic Surgery

== ENCOUNTER 2021-10-12 05:26 | Observation (INO) ==
[2021-10-05 16:21] LABS: Basophils # 0.1 10*3/uL (0.0-0.2); Basophils % 0.7 % (0.0-0.8); Eosinophils # 0.2 10*3/uL (0.0-0.87); Hematocrit 36.7 VOL% (42.0-52.0); Hemoglobin 11.1 GM/DL (14.0-18.0); Immature Granulocytes % 0.1 %; Immature Granulocytes Absolute 0.01 #; Lymphocytes # 1.9 10*3/uL (1.4-4.0); Lymphocytes % 24.9 % (21.2-54.2); Mean Corpuscular HGB Conc 30.2 GM/DL (32-36); Mean Corpuscular Volume 88.4 FL (87-102); Mean Platelet Volume 12.1 FL (9.6-12.0); Monocytes # 0.5 10*3/uL (0.11-0.8); Monocytes % 6.3 % (1.7-12.7); Platelet Count 262 T/CUMM (130-400); Red Blood Count 4.15 MC/CUMM (3.8-5.5); Red Cell Distribution Width 16.7 % (9.3-17.3); White Blood Count 7.4 T/CUMM (4-12)
[2021-10-05 16:35] LABS: Bilirubin,Urine Negative (Negative); Blood, Urine Trace mg/dL (Negative); Glucose,Urine (UA) Negative (Negative); Ketones,Urine Negative (Negative); Nitrite,Urine Negative (Negative); Protein,Urine >=300 mg/dL (Negative); Urine Appearance Clear (Clear); Urine Color Yellow (Yellow); Urine Specific Gravity 1.025 (1.001-1.035); Urine Urobilinogen 0.2 eU/dL (<2.0); Urine pH 5.5 (4.5-8.0)
[2021-10-05 16:36] LABS: INR 0.9; PT Patient Result 10.5 SECS (10.1-12.1); Partial Thromboplastin Time 33.1 SECS (23.7-32.9)
[2021-10-05 16:37] LABS: Mucus,Urine Occasional /LPF (Occasional); Squamous Epithelial Cell,Urine Occasional /HPF (0-10)
[2021-10-05 16:38] LABS: Alanine Aminotransferase 21 U/L (16-61); Albumin 3.8 G/DL (3.4-5.0); Alkaline Phosphatase 80 U/L (45-117); Aspartate Amino Transferase 19 U/L (0-37); Bilirubin,Total < 0.39 MG/DL (0.20-1.00); Blood Urea Nitrogen 32 MG/DL (7-18); Calcium 9.3 MG/DL (8.5-10.1); Carbon Dioxide 27 MMOL/L (21-32); Chloride 110 MMOL/L (98-107); Glucose 73 MG/DL (74-106); Osmolality,Calculated 291.8 MOS/KG (273-304); Potassium 4.7 MMOL/L (3.5-5.1); Sodium 144 MMOL/L (136-145); Total Protein 7.5 G/DL (6.4-8.2)
[2021-10-12] MEDS ORDERED: ceFAZolin 2,000 MG/50 ML DUPLEX IV ONE (06:00)
[2021-10-12] MEDS ORDERED: VANCOMYCIN INJ 1,000 MG in SODIUM CHLORIDE 0.9% 250 ML IV ONE ×2 (06:00→21:00)
[2021-10-12] MEDS ORDERED: DIAZEPAM 5 MG TABLET PO ONE (06:44)
[2021-10-12] MEDS ORDERED: FAMOTIDINE 20 MG TABLET PO ONE (06:44)
[2021-10-12] MEDS ORDERED: GABAPENTIN 400 MG CAPSULE PO ONE (06:44)
[2021-10-12] MEDS ORDERED: ACETAMINOPHEN 500 MG TABLET PO ONE (06:44)
[2021-10-12] MEDS ORDERED: DEXAMETHASONE 4 MG/1 ML VIAL ONE (06:55)
[2021-10-12] MEDS ORDERED: ROPIVACAINE 0.5% 30 ML VIAL ONE ×2 (06:55→07:52)
[2021-10-12] MEDS ORDERED: LIDOCAINE 1% 5 ML VIAL ONE (06:56)
[2021-10-12] MEDS ORDERED: PHENYLEPHRINE DRIP 20 MG/250 ML PREMIX IV ONE (06:56)
[2021-10-12] MEDS ORDERED: BACITRACIN OINT 0.9 GM PACK TOP ONE (06:59)
[2021-10-12] MEDS ORDERED: fentaNYL 100 MCG/2 ML VIAL ONE (07:03)
[2021-10-12] MEDS ORDERED: BUPIVACAINE SPINAL 0.75% 2 ML AMP SPINAL ONE (07:03)
[2021-10-12] MEDS ORDERED: MIDAZOLAM 2 MG/2 ML VIAL ONE ×2 (07:03→08:04)
[2021-10-12] MEDS ORDERED: LIDOCAINE 2% 5 ML VIAL ONE (07:03)
[2021-10-12] MEDS ORDERED: propofoL 200 MG/20 ML VIAL IV ONE ×4 (07:03→09:25)
[2021-10-12] MEDS ORDERED: ONDANSETRON 4 MG/2 ML VIAL ONE (07:03)
[2021-10-12] MEDS ORDERED: buprenorphine HCL 0.3 MG/ML VIAL ONE (07:04)
[2021-10-12] MEDS ORDERED: SODIUM CHLORIDE 0.9% 1,000 ML IV SCH (07:20)
[2021-10-12] MEDS ORDERED: SUCCINYLCHOLINE 200 MG/10 ML VIAL ONE (08:36)
[2021-10-12] MEDS ORDERED: PHENYLEPHRINE 1 MG/10 ML SYRINGE IV ONE ×2 (08:50→09:22)
[2021-10-12] MEDS ORDERED: ZALEPLON 5 MG CAPSULE PO PRN (10:08)
[2021-10-12] MEDS ORDERED: MAGNESIUM HYDROXIDE SUSP 30 ML UDCUP PO PRN (10:08)
[2021-10-12] MEDS ORDERED: ONDANSETRON 4 MG/2 ML VIAL IV PRN (10:08)
[2021-10-12] MEDS ORDERED: MORPHINE 2 MG/1 ML SYRINGE IV PRN ×2 (10:08)
[2021-10-12] MEDS ORDERED: diphenhydrAMINE CAP 25 MG CAPSULE PO PRN (10:08)
[2021-10-12] MEDS ORDERED: GLUCAGON 1 MG VIAL IM PRN (10:10)
[2021-10-12] MEDS ORDERED: DEXTROSE 50% 25 GM/50 ML VIAL IV PRN (12:10)
[2021-10-12] MEDS ORDERED: lisinopriL 20 MG TABLET PO STA (12:18)
[2021-10-12] MEDS ORDERED: hydrALAZINE 20 MG/1 ML VIAL IV PRN (13:16)
[2021-10-12] MEDS: LACTATED RINGERS 1,000 ML IV SCH ×2 (15:00→17:17)
[2021-10-12] MEDS ORDERED: DEXTROSE 10% 250 ML BAG IV PRN (16:26)
[2021-10-12] MEDS: INSULIN LISPRO 100 UNIT/ML SUBCUT SCH ×3 (16:32→22:57)
[2021-10-12] MEDS: ceFAZolin 2,000 MG/50 ML DUPLEX IV SCH (17:16)
[2021-10-12] MEDS: ATORVASTATIN 20 MG TABLET PO SCH (21:15)
[2021-10-12] MEDS: DOCUSATE SODIUM 100 MG CAPSULE PO SCH (21:15)
[2021-10-13] MEDS: ceFAZolin 2,000 MG/50 ML DUPLEX IV SCH (01:11)
[2021-10-13] MEDS: LACTATED RINGERS 1,000 ML IV SCH ×2 (03:04→15:40)
[2021-10-13 05:09] LABS: Basophils % 0.3 % (0.0-0.8); Hemoglobin 9.5 GM/DL (14.0-18.0); Immature Granulocytes % 0.5 %; Immature Granulocytes Absolute 0.04 #; Lymphocytes % 12.5 % (21.2-54.2); Mean Corpuscular HGB Conc 29.7 GM/DL (32-36); Mean Corpuscular Volume 89.6 FL (87-102); Mean Platelet Volume 11.4 FL (9.6-12.0); Monocytes # 0.8 10*3/uL (0.11-0.8); Monocytes % 9.9 % (1.7-12.7); Neutrophils % 76.8 % (38.7-73.9); Platelet Count 197 T/CUMM (130-400); Red Blood Count 3.57 MC/CUMM (3.8-5.5); Red Cell Distribution Width 16.9 % (9.3-17.3); White Blood Count 7.7 T/CUMM (4-12)
[2021-10-13 05:30] LABS: Calcium 8.7 MG/DL (8.5-10.1); Osmolality,Calculated 288.3 MOS/KG (273-304); Potassium 4.6 MMOL/L (3.5-5.1)
[2021-10-13] MEDS: INSULIN LISPRO 100 UNIT/ML SUBCUT SCH ×4 (07:16→22:09)
[2021-10-13] MEDS: GLIMEPIRIDE 4 MG TABLET PO SCH (09:11)
[2021-10-13] MEDS: ZINC GLUCONATE 50 MG TABLET PO SCH (09:11)
[2021-10-13] MEDS: POTASSIUM CHLORIDE 20 MEQ TABLET PO SCH (09:11)
[2021-10-13] MEDS: metFORMIN 500 MG TABLET PO SCH (09:11)
[2021-10-13] MEDS: APIXABAN 2.5 MG TABLET PO SCH ×2 (09:12→21:23)
[2021-10-13] MEDS: DOCUSATE SODIUM 100 MG CAPSULE PO SCH ×2 (09:12→21:22)
[2021-10-13] MEDS: lisinopriL 20 MG TABLET PO SCH (09:12)
[2021-10-13] MEDS: CYANOCOBALAMIN 100 MCG TABLET PO SCH (09:14)
[2021-10-13] MEDS: SEMAGLUTIDE 14 MG PO SCH (09:15)
[2021-10-13] MEDS: FUROSEMIDE 40 MG TABLET PO SCH (09:15)
[2021-10-13] MEDS ORDERED: BISACODYL 5 MG TABLET PO PRN (11:29)
[2021-10-13] MEDS: ATORVASTATIN 20 MG TABLET PO SCH (21:23)
[2021-10-14 05:54] LABS: Basophils % 0.4 % (0.0-0.8); Eosinophils # 0.2 10*3/uL (0.0-0.87); Eosinophils % 1.7 % (0.00-10.9); Hematocrit 30.1 VOL% (42.0-52.0); Hemoglobin 9.2 GM/DL (14.0-18.0); Immature Granulocytes % 0.7 %; Immature Granulocytes Absolute 0.06 #; Lymphocytes # 1.4 10*3/uL (1.4-4.0); Lymphocytes % 15.2 % (21.2-54.2); Mean Corpuscular HGB Conc 30.6 GM/DL (32-36); Mean Platelet Volume 12.4 FL (9.6-12.0); Monocytes % 11.6 % (1.7-12.7); Neutrophils % 70.4 % (38.7-73.9); Platelet Count 213 T/CUMM (130-400)
[2021-10-14 07:32] VITALS: BP 156/83
[2021-10-14] MEDS: INSULIN LISPRO 100 UNIT/ML SUBCUT SCH ×2 (08:30→11:28)
[2021-10-14] MEDS: ZINC GLUCONATE 50 MG TABLET PO SCH (08:37)
[2021-10-14] MEDS: GLIMEPIRIDE 4 MG TABLET PO SCH (08:37)
[2021-10-14] MEDS: APIXABAN 2.5 MG TABLET PO SCH (08:37)
[2021-10-14] MEDS: lisinopriL 20 MG TABLET PO SCH (08:38)
[2021-10-14] MEDS: DOCUSATE SODIUM 100 MG CAPSULE PO SCH (08:38)
[2021-10-14] MEDS: FUROSEMIDE 40 MG TABLET PO SCH (08:38)
[2021-10-14] MEDS: POTASSIUM CHLORIDE 20 MEQ TABLET PO SCH (08:38)
[2021-10-14] MEDS: metFORMIN 500 MG TABLET PO SCH (08:38)
[2021-10-14] MEDS: SEMAGLUTIDE 14 MG PO SCH (09:03)
[2021-10-14] MEDS: CYANOCOBALAMIN 100 MCG TABLET PO SCH (12:36)
== END 2021-10-14 12:10 ==
LOC: N.3E 05:26 → N.SDSINP 05:26 → N.OR 05:26 → N.SDSINP 05:27 → N.3E 16:21
PROVIDERS: ADMIT Orthopaedic Surgery; ATTEND Orthopaedic Surgery